=== PATIENT | female | born 1970 ===

== ENCOUNTER 2023-06-15 08:40 | Day surgery (SDC) | payer BC ==
[2023-06-15] MEDS ORDERED: BUPIVACAINE 0.75% (PF) 2 ML SP ONE (09:02)
[2023-06-15] MEDS ORDERED: CEFAZOLIN SODIUM 1 GM/VIAL ONE (09:04)
[2023-06-15] MEDS ORDERED: Ringers Lactate 1,000 ML IV ONE ×2 (09:04→11:23)
[2023-06-15] MEDS ORDERED: FENTANYL CITR 100 MCG/2 ML ONE ×2 (09:06→09:20)
[2023-06-15] MEDS ORDERED: LIDOCAINE 2% MPF 5 ML VIAL ONE ×2 (09:07→09:20)
[2023-06-15] MEDS ORDERED: propofoL 200 MG/20 ML VIAL IV ONE ×4 (09:19→10:54)
[2023-06-15] MEDS ORDERED: MIDAZOLAM HCL 2 MG/2 ML INJ ONE (09:21)
[2023-06-15] MEDS ORDERED: dexAMETHasone 4 MG/ML VIAL ONE (09:22)
[2023-06-15] MEDS ORDERED: ONDANSETRON 4 MG/2 ML VIAL ONE (09:22)
[2023-06-15] MEDS ORDERED: TRANEXAMIC ACID 1,000 MG/10 ML VIAL IV ONE (09:37)
[2023-06-15] MEDS ORDERED: KETAMINE HCL IN 0.9 % NACL 50 MG/5 ML SYRINGE IV ONE (10:09)
[2023-06-15] MEDS ORDERED: EPHEDRINE SULF 50 MG/ML VIAL ONE (10:40)
[2023-06-15] MEDS ORDERED: KETOROLAC 30 MG/ML INJ ONE (11:10)
--- NOTE | 2023-06-15 11:44 | OP ---
Date of Procedure: 06/15/2023 Surgeon: Huber Rosenthal MD Preoperative Diagnosis: Left hip trochanteric bursitis with probable partial abductor tear. Postoperative Diagnosis: Left hip trochanteric bursitis with probable partial abductor tear. Procedure: Left hip bursectomy with debridement of adductor insertion and securing the abductors wit h a suture anchor. Estimated Blood Loss: 20 cc. Complications: There were no complications. Indications For Operation: Ms. Lee is a 53-year-old, who unfortunately has been suffering from the trochanteric bursitis for some time. This persisted despite multiple injections as well as ther apeutic exercise because it would clear with each injection, but then unfortunately returned with alan te significant intensity. An MRI was done, which demonstrated a possible partial thickness tear of t he abductor as well as trochanteric bursitis. Risks, benefits, and alternatives of different methods of treating this were discussed with her. She states she understands things presented and agrees to proceed with planned procedure. Description Of Procedure: The patient was taken to the operating room. She had a spinal placed. Sh e was then placed in the supine position. General anesthesia was obtained. She was then rolled righ t side down on axillary roll and positioned using hip positioners with all bony prominences being natalie cked. After this, her left lower extremity was then prepped and draped in the usual sterile fashion. A standard posterolateral incision was then taken down carefully through the skin and soft tissue. There was quite a bit of adipose tissue and meticulous hemostasis was obtained using Bovie electroca utery. This proceeded down until the fascia. A small stab wound was made in the fascia palpating th e gluteal tendon to ensure we were at the correct position. This was then carried up until near the tip of the greater trochanter where the gluteus teofilo muscles were encountered. They were then spr ead using finger pressure. There was a lot of bursal tissue and scarring, which was adherent to the fascia on the undersurface. Finger was used to remove these adhesions from the undersurface of the f ascia. The sciatic nerve was palpated and protected, and the knee remained bent as the bursa and aroldo ris were then removed carefully. After this, the greater trochanter was addressed and the abductors came down and attached there. It does appear to have a fairly good attachment, however. A vertical incision was made at its attachment, preserving other attachments, but allowing for a window, which a llowed for placement of a rongeur. There was found to be tendinosis and changes of the tendon, which were debrided using a rongeur. After this, a JuggerKnot suture anchor was then placed in the greate r trochanter and the abductors were then tied down closing the vertical abductor incision and securin g this area to the trochanter. Following this, the wound was copiously irrigated using a jet lavage and the hip was only very slightly abducted as the fascia was then closed somewhat loosely with the i nferior aspect being a running stitches and a more superior aspect with [id number] after this w as again irrigated and the skin was closed using interrupted 2-0 Vicryl sutures followed by madina. The patient was then placed in Aquacel dressing, awakened, and taken to recovery room. ISAÍAS Voice ID: [id number] Report ID: [id number]
[2023-06-15 14:34] VITALS: BP 119/81; TEMP 96.8; O2SAT 100
== END 2023-06-15 14:33 | disposition home or self-care (01) ==
LOC: PRE 08:40 → OR 14:33
PROVIDERS: ATTEND Orthopaedic Surgery
PROC: 0LS Tendons, Reposition (ICD-10-PCS; 2023-06-15)
PROC: 0MBM0ZZ Excision of Left Hip Bursa and Ligament, Open Approach (ICD-10-PCS; principal; 2023-06-15 11:30)
DX: M70.62 Trochanteric bursitis, left hip (principal); M76.892 Other specified enthesopathies of left lower limb, excluding foot
CPT/HCPCS: 27062; 27006; J2704 ×4; J1100; J2001 ×2; J2250; J3010 ×2; J2405; J7120 ×2; J0690